=== PATIENT | male | born 1960 | race Caucasian/White ===

== ENCOUNTER → 2024-02-22 | Outpatient (CLI) | payer OTHER | LOC: M PLARAD 09:44 | PROVIDERS: ATTEND Colon & Rectal Surgery | DX: C18.7 Malignant neoplasm of sigmoid colon (principal) | CPT/HCPCS: 78815; A9552 ==

== ENCOUNTER → 2024-06-13 | Outpatient (CLI) | payer OTHER | LOC: M PLARAD 12:47 | DX: C18.8 Malignant neoplasm of overlapping sites of colon (principal) | CPT/HCPCS: 78815; A9552 ==